=== PATIENT | male | born 1980 | race Hispanic/Latino ===

== ENCOUNTER 2024-04-04 07:05 | Emergency (ER) | payer OTHER ==
[~2024-04-04] VITALS: Ht 172.7 cm; Wt 123.4 kg
[2024-04-04 07:10] VITALS: TEMP 98.9
[2024-04-04 07:53] LABS: BASOPHILS % 0.2 % (0.0-1.0); EOSINOPHILS % 0.3 % (0.0-6.0); HEMATOCRIT 42.2 % (38.2-49.6); HEMOGLOBIN 13.8 g/dL (14.0-18.0); LYMPHOCYTES # (AUTO) 1.6 (1.0-3.2); LYMPHOCYTES % 10.8 % (18.0-39.1); MEAN CORPUSCULAR HEMOGLOBIN 29.7 pg (28-32); MEAN CORPUSCULAR HGB CONC 32.7 g/dL (31-35); MEAN CORPUSCULAR VOLUME 90.8 fL (81-99); MONOCYTES # (AUTO) 0.6 (0.2-0.8); NEUTROPHILS # (AUTO) 12.2 (2.1-6.9); NEUTROPHILS % 84.1 % (38.7-80.0); PLATELET COUNT 289 x10e3/uL (140-360); RED BLOOD COUNT 4.65 x10e6/uL (4.3-5.7); RED CELL DISTRIBUTION WIDTH 12.8 % (11.7-14.4); WHITE BLOOD COUNT 14.51 x10e3/uL (4.8-10.8)
[2024-04-04 08:10] LABS: ALBUMIN 3.6 g/dL (3.5-5.0); ALBUMIN/GLOBULIN RATIO 0.7 (0.8-2.0); ANION GAP 14.5 mmol/L (8-16); BILIRUBIN,TOTAL 0.6 mg/dL (0.2-1.2); CALCIUM 9.9 mg/dL (8.4-10.2); CREATININE, SERUM 0.87 mg/dL (0.72-1.25); POTASSIUM 4.5 mmol/L (3.5-5.1); TOTAL PROTEIN 8.5 g/dL (6.5-8.1)
[2024-04-04] MEDS: ONDANSETRON HCL INJ 2MG/ML 2ML 2 MG/ML VIAL IV STA (08:17)
[2024-04-04] MEDS: FENTANYL CITRATE/PF 100MCG/2 ML INJ IV ONE (08:19)
[2024-04-04] MEDS: KETOROLAC TROMETHAMINE 30 MG/ML VIAL IV STA (08:19)
[2024-04-04 08:30] VITALS: PULSE 94; RESP 16
[2024-04-04 08:41] LABS: BILIRUBIN,URINE NEGATIVE (NEGATIVE); CLARITY,URINE CLOUDY (CLEAR); COLOR,URINE YELLOW (YELLOW); GLUCOSE, URINE 1+ (NEGATIVE); KETONES,URINE NEGATIVE (NEGATIVE); LEUKOCYTE ESTERASE ,URINE MODERATE (NEGATIVE); NITRITE,URINE NEGATIVE (NEGATIVE); PH,URINE 7 (5 - 7); PROTEIN,URINE DIPSTICK 2+ (NEGATIVE); URINE UROBILINOGEN 1 mg/dL (0.2 - 1)
[2024-04-04 08:50] LABS: WBC,URINE (MAN) >50 /HPF (0-5)
[2024-04-04 08:51] LABS: BACTERIA,URINE MANY /HPF; EPITHELIAL CELLS,URINE FEW /LPF; RBC,URINE 21-50 /HPF (0-5)
[2024-04-04] MEDS ORDERED: CEFDINIR300 MG PO (09:08)
[2024-04-04 09:28] VITALS: BP 134/92; PULSE 81; RESP 16; TEMP 98.3; O2SAT 95
== END 2024-04-04 09:30 | disposition home or self-care (01) ==
LOC: ER 07:18
DX: R10.30 Lower abdominal pain, unspecified (principal); N39.0 Urinary tract infection, site not specified; R73.03 Prediabetes; Z85.72 Personal history of non-Hodgkin lymphomas; Z87.442 Personal history of urinary calculi
CPT/HCPCS: 36415; 74176; 80053; 81001; 85025; 87086; 99284; J1885; J2405; J3010